=== PATIENT | female | born 1940 | race Caucasian/White ===

== ENCOUNTER 2016-07-14 11:05 | Inpatient (IN) | payer MEDICARE, OTHER ==
[~2016-07-14] VITALS: Ht 162.6 cm; Wt 82.1 kg
--- NOTE | ~2016-07-14 | HEMODYNAMI ---
PATIENT:JORDANA ESPINOZA MEDICAL RECORD: [id number] : 36 [facility] ADMISSION DATE: 07/14/16 Generatedon:07/20/201615:40 Patient name: JORDANA ESPINOZA Patient #: [id number] SSN: D OB: 1940 Date of study: 07/20/2016 Page: Of Hemodynamic Procedure Report Patient Data Patient Demographics Procedure consent was obtained First Name: JORDANA Gender: Female Last Name: OLGA : 1940 Patient #: [id number] Age: 76 year(s) Race: Additional ID: [id number] Contact details Address: [place] [place] [address] State: [place] City: [place] Zip code: [address] Past Medical History Allergies Allergen Reaction Date Comments Reported Penicillins 10/29/2014 Penicillins 07/20/2016 Admission Admission Data Admission Date: 07/14/2016 Admission Time: 15:13 Room #: D.2130 Weight (lbs.): 234 Weight (kg.): 106.14 Procedure Procedure Types Cath Procedure Peripheral Cath Diagnostic Procedure Cath Peripheral Kyphoplasty Kyphoplasty Thoracic Procedure Description Procedure Date Procedure Date: 07/20/2016 Procedure Start Time: 14:54 Procedure Staff Name Function Mg Rose MD Performing Physician Cricket Krishnamurthy RT Scrub Deedee Hare RN Nurse Marisol Fulton RT Administration Intern Marisol Fulton RT Monitor Procedure Data Cath Procedure Fluoroscopy Diagnostic fluoroscopy Total fluoroscopy Time: time: 10.7 min 10.7 min Diagnostic fluoroscopy Total fluoroscopy dose: dose: 1032.08 mGy 1032.08 mGy Procedure Medications Medication Administration Route Dosage Zofran I.V. 4 mg Fentanyl I.V. 50 mcg Benadryl I.V. 50 mg Fentanyl I.V. 50 mcg Vancomycin I.V.P.B 500 mg Versed I.V. 1 mg Versed I.V. 1 mg Fentanyl I.V. 50 mcg Versed I.V. 1 mg Hemodynamics Rest Heart Rate: 86 (bpm) Snapshots Pre Cath Intra NCS Post Cath Vital Signs Time Heart Resp SPO2 NIBP (mmHg) Rhythm Pain Status Sedation Rate (ipm) (%) Level (bpm) 14:20:36 18 Out of range NSR 9 (11) , 10(A) Excruciating unbearable 14:24:15 16 202/103(152) NSR 9 (11) , 10(A) Excruciating unbearable 14:32:26 16 199/109(161) NSR 5 (11) , Very 10(A) distressing 14:35:18 14 96 202/111(160) NSR 3 (11) , 10(A) Tolerable 14:40:16 16 99 197/91(119) NSR 2 (11) , 10(A) Uncomfortable 14:44:58 82 14 96 155/88(106) NSR 0 (11) , No 10(A) pain 14:49:33 90 14 98 153/82(127) NSR 0 (11) , No 10(A) pain 14:54:09 81 14 96 165/78(111) NSR 0 (11) , No 10(A) pain 14:58:35 76 13 98 122/69(91) NSR 0 (11) , No 9(A) pain 15:02:58 74 13 98 126/68(96) NSR 0 (11) , No 9(A) pain 15:07:20 75 14 99 144/74(98) NSR 0 (11) , No 9(A) pain 15:11:40 77 12 100 137/83(108) NSR 0 (11) , No 9(A) pain 15:16:08 78 13 99 140/72(98) NSR 0 (11) , No 9(A) pain 15:20:28 79 11 99 126/64(96) NSR 0 (11) , No 9(A) pain 15:25:27 89 14 98 Measuring NSR 0 (11) , No 9(A) pain 15:25:52 85 13 98 161/84(111) NSR 0 (11) , No 9(A) pain 15:30:18 74 13 99 153/82(107) NSR 0 (11) , No 9(A) pain 15:34:53 73 11 98 149/74(106) NSR 0 (11) , No 9(A) pain 15:39:21 73 11 99 161/82(113) NSR 0 (11) , No 9(A) pain Medications Time Medication Route Dose Verified Delivered Reason Notes Effect iveness by by 14:23:29 Zofran I.V. 4 mg Deedee Deedee for nausea King DANE Hare RN 14:25:07 Fentanyl I.V. 50 Deedee Deedee for back mcg King DANE Hare RN pain 14:33:01 Benadryl I.V. 50 mg Deedee Deedee for sedation King DANE Hare RN 14:33:56 Fentanyl I.V. 50 Deedee Deedee for back mcg King DANE Hare RN pain 14:36:11 Vancomycin I.V.P.B 500mg Deedee Deedee prophylactic King DANE Hare RN 14:55:22 Versed I.V. 1 mg Deedee Deedee for sedation King DANE Hare RN 15:01:50 Versed I.V. 1 mg Deedee Deedee for sedation King DANE Hare RN 15:12:18 Fentanyl I.V. 50 Deedee Deedee for back mcg King DANE Hare RN pain 15:15:32 Versed I.V. 1 mg Deedee Deedee for sedation King DANE Hare RN Procedure Log Time Note 13:34:36 Patient Weight : 234 lbs 14:19:24 Time tracking: Regular hours 14:19:33 Plan of Care:Hemodynamics will remain stable., Cardiac rhythm will remain stable., Comfort level will be maintained., Respiratory function will remain adequate., Patient/ family verbilizes understanding of procedure., Procedure tolerated without complication., Recovers from procedure without complications.. 14:20:21 Patient received from Med II to Alert and oriented. Tansferred to table in Prone position. 14:20:24 Correct patient and procedure confirmed by team. 14:20:26 Signed procedure consent form obtained from patient. 14:20:29 - 14:20:37 H&P Date Dictated: 07/20/2016 Within 30 days and on chart.. 14:20:39 Pre-procedure instructions explained to patient. 14:20:40 Pre-op teaching completed and patient verbalized understanding. 14:20:43 Family in waiting room. 14:20:48 Patient NPO since Midnight. 14:21:16 Patient allergic to Penicillins 14:21:41 If diabetic: On Metformin? No 14:21:43 - 14:21:46 ----Pre-sedation anethsthesia assessment.---- 14:21:50 Previous problem with sedation/anesthesia? No ? 14:21:56 Sleep apnea? No 14:22:05 Snore? Yes 14:22:09 Deviated septum? No 14:22:12 Opens mouth fully? Yes 14:22:14 Sticks out tongue? Yes 14:22:17 Airway obstruction? No , but has heart disease? 14:22:56 IV patent on arrival in left wrist with 0.9% NaCl at [facility]. 14:23:09 Thoracic area was prepped with dura-prep and draped in sterile fashion 14:23:12 Alarms reviewed by R. N. 14:23:13 Sharps counted by scrub and verified by R.N. 14:23:14 - 14:23:29 Zofran 4 mg I.V. was given by Deedee Hare RN; for nausea; 14:23:29 Use device set IR Diagnostic 14:23:30 Sterile Angiographic Pack opened to sterile field. 14:23:32 Bag Decanter opened to sterile field. 14:25:07 Fentanyl 50 mcg I.V. was given by Deedee Hare RN; for back pain; 14:25:29 [place] BONE BX 11GA kit opened to sterile field. 14:25:30 Chandana 11G Curved Needle opened to sterile field. 14:25:31 CHANDANA 10/2 AUGMENT[place] [place] KIT opened to sterile field. 14:25:32 CHANDANA AUTOPLEX MIXER W/VHV opened to sterile field. 14:30:42 Vital chart was started 14:33:01 Benadryl 50 mg I.V. was given by Deedee Hare RN; for sedation; 14:33:56 Fentanyl 50 mcg I.V. was given by Deedee Hare RN; for back pain; 14:36:11 Vancomycin 500mg I.V.P.B was given by Deedee Hare RN; prophylactic; 14:43:52 ECG and BP/O2 sat monitors applied to patient. 14:43:55 Full Disclosure recording started 14:53:09 Baseline sample Acquired. 14:53:13 - 14:53:19 Physician arrived 14:53:20 --------ALL STOP TIME OUT------ 14:53:21 Final Timeout: patient, procedure, and site verified with staff and physician. All members of the team are in agreement. 14:54:18 Physical assessment completed. ASA score P 3 - A patient with severe systemic disease as per Mg Rose MD. 14:54:27 Sedation plan: IV Moderate Sedation Versed, Fentanyl 14:54:42 Procedure started. 14:55:22 Versed 1 mg I.V. was given by Deedee Hare RN; for sedation; 14:57:28 Jamshidi needle introduced. 15:01:50 Versed 1 mg I.V. was given by Deedee Hare RN; for sedation; 15:09:20 Bone bx needle placed. 15:11:35 Kyphoplasty balloon introduced. 15:12:18 Fentanyl 50 mcg I.V. was given by Deedee Hare RN; for back pain; 15:15:02 Cement introduced to vertebral body. 15:15:32 Versed 1 mg I.V. was given by Deedee Hare RN; for sedation; 15:25:02 Jamshidi needle removed. 15:30:03 Procedure ended.(Physican Out) 15:30:43 Fluoroscopy time 10.70 minutes. 15:30:51 Fluoroscopy dose: 1032.08 mGy 15:30:51 Flurop Dose total: 1032.08 15:31:15 Sharps counted by scrub and verified by R.N. 15:31:18 Procedure and supply charges have been captured, reviewed, submitted an d are correct. 15:40:14 Vital chart was stopped Device Usage Item Name Manufacture Quantity Catalog Hospital Part Current Minim al Lot# / Number Charge Number Stock Stock Serial# Code Sterile Cardinal 1 [id number] 5 Angiographic Health Pack Bag Decanter Microtek 1 [id number] 5 [employer] Chandana BONE [place] 1 [id number] [id number] [id number] 5 BX 11GA kit [place] 11G Chandana 1 [id number] [id number] [id number] 5 Curved Needle CHANDANA 10/2 [place] 1 4590-466-655 241874 195029 [id number] 5 AUGMENT[employer] [place] KIT CHANDANA Chandana 1 [id number] 039557 22785 [id number] 5 AUTOPLEX MIXER W/VHV Signature Audit Virgil Stage Time Signature Unsigned Intra-Procedure 07/20/2016 Marisol Fulton 3:40:11 PM RT(R) Signatures Monitor : Marisol Fulton RT Signature : Date : Time : [facility] [address] [place] [address]
[~2016-07-14 11:05] MED LIST: PLAVIX75 MG PO
[2016-07-14 12:42] LABS: BASOPHILS 0.5 % (0.0-2.0); EOSINOPHILS 3.5 % (0-7); HEMATOCRIT 41.7 % (36.0-48.0); HEMOGLOBIN 13.3 g/dL (12-16); IMMATURE GRANULOCYTES 0.2 % (0-5); INR 1.05 (0.85-1.17); LYMPHOCYTES 25.7 % (15-50); MCH 33.3 pg (26.0-34.0); MCHC 31.9 g/dL (31.0-37.0); MCV 104.5 fL (80.0-100.0); MEAN PLATELET VOLUME 9.4 fL (7.4-10.4); NEUTROPHILS 64.1 % (40-80); PLATELET COUNT 263 10x3/uL (130-400); PROTIME 13.6 SECONDS (11.6-15.0); RBC 3.99 10x6/uL (4.00-5.40); RDW 13.2 % (11.5-14.5)
[2016-07-14 12:47] LABS: ALBUMIN 3.7 g/dL (3.4-5.0); ANION GAP 12.6 mmol/L (8-16); BILIRUBIN - TOTAL 0.4 mg/dL (0.2-1.3); CALCIUM 9.6 mg/dL (8.5-10.1); CARBON DIOXIDE 29.2 mmol/L (21.0-32.0); CREATININE - SERUM 1.1 mg/dL (0.6-1.3); POTASSIUM - SERUM 3.8 mmol/L (3.5-5.1); PROTEIN - SERUM 7.7 g/dL (6.4-8.2)
[2016-07-14 12:51] LABS: TROPONIN-I 0.033 ng/mL (0.000-0.060)
[2016-07-14] MEDS ORDERED: ISOSORBIDE DINI20 MG PO (17:06)
[2016-07-14] MEDS ORDERED: BAYER CHEWABLE81 MG PO (17:07)
[2016-07-14] MEDS ORDERED: BACLOFEN10 MG PO (17:07)
[2016-07-14] MEDS ORDERED: NITROSTAT0.4 MG SL (17:07)
[2016-07-14] MEDS ORDERED: SYNTHROID112 MCG PO (17:08)
[2016-07-14] MEDS ORDERED: OMEPRAZOLE20 M1 PO (17:08)
[2016-07-14] MEDS ORDERED: FUROSEMIDE40 MG PO (17:09)
[2016-07-14 17:10] VITALS: BP 134/80; BMI 37.5
--- NOTE | 2016-07-14 17:20 | NUR ---
PT TO ROOM FROM ER ADMITTED. SCDS ON. PT ALERT AND ORIENTED. FAMILY AT BEDSIDE.
[2016-07-14 22:07] VITALS: BP 192/104
--- NOTE | 2016-07-14 23:18 | NUR ---
IN BED RESTING, WITH EYES CLOSED, NO S/S DISTRESS NOTED.
[2016-07-15 01:00] VITALS: BP 192/116
--- NOTE | 2016-07-15 01:20 | NUR ---
DILAUDID 0.5 MG AND ZOFRAN 4 MG GIVEN FOR C/O PAIN AND NAUSEA.
[2016-07-15 04:31] VITALS: BP 135/81
--- NOTE | 2016-07-15 05:33 | NUR ---
UP WITH ASSIST TO BR, GAIT UNSTEADY. BATH GIVEN AND LINENS CHANGED.
[2016-07-15 06:33] LABS: BASOPHILS 0.4 % (0.0-2.0); EOSINOPHILS 0.9 % (0-7); HEMATOCRIT 39.8 % (36.0-48.0); HEMOGLOBIN 12.4 g/dL (12-16); IMMATURE GRANULOCYTES 0.3 % (0-5); LYMPHOCYTES 17.7 % (15-50); MCH 32.9 pg (26.0-34.0); MCHC 31.2 g/dL (31.0-37.0); MCV 105.6 fL (80.0-100.0); MEAN PLATELET VOLUME 9.3 fL (7.4-10.4); NEUTROPHILS 73.7 % (40-80); PLATELET COUNT 241 10x3/uL (130-400); RBC 3.77 10x6/uL (4.00-5.40); RDW 13.7 % (11.5-14.5); WBC 6.7 10x3/uL (4.8-10.8)
--- NOTE | 2016-07-15 07:00 | NUR ---
RECEIVED REPORT. ASSUMED CARE OF PATEINT. PATIENT WITH EYES OPEN, SITTING UP IN BED TALKING ON CELL PHONE. CALL LIGHT WITHIN REACH. DENIES NEEDS. NO DISTRESS.
[2016-07-15 07:06] LABS: ANION GAP 14.3 mmol/L (8-16); CARBON DIOXIDE 29.2 mmol/L (21.0-32.0); CREATININE - SERUM 1.1 mg/dL (0.6-1.3)
[2016-07-15 07:08] LABS: POTASSIUM - SERUM 4.5 mmol/L (3.5-5.1)
[2016-07-15 08:00] VITALS: BP 106/75
--- NOTE | 2016-07-15 11:38 | NUR ---
MEDICATED FOR PAIN AT THIS TIME. NO DISTRESS.
[2016-07-15 12:00] VITALS: BP 116/65
[2016-07-15 12:54] VITALS: Ht 162.6 cm; Wt 82.1 kg
--- NOTE | 2016-07-15 14:09 | NUR ---
RESTING WELL. CALL LIGHT WITHIN REACH. NO DISTRESS. DENIES NEEDS AT THIS TIME.
--- NOTE | 2016-07-15 14:35 | NUR ---
MEDICATED FOR PAIN AT THIS TIME. NO DISTRESS.
--- NOTE | 2016-07-15 15:50 | NUR ---
EKG #1 COMPLETE AT THIS TIME. RESULTS SHOWED TO . NO NEW ORDERS AT THIS TIME.
--- NOTE | 2016-07-15 16:09 | NUR ---
ULTRASOUND AT BEDSIDE FOR DOPPLER ULTRASOUND.
[2016-07-15 16:10] LABS: CKMB 1.1 U/L (0.0-3.6); CREATINE KINASE 36 UL (21-215); TROPONIN-I 0.035 ng/mL (0.000-0.060)
[2016-07-15 16:27] VITALS: BP 118/68
--- NOTE | 2016-07-15 18:26 | NUR ---
RESTING IN BED WITH EYES OPEN, FAMILY AT BEDSIDE. CALL LIGHT WITHIN REACH. DENIES NEEDS. NO DISTRESS.
--- NOTE | 2016-07-15 20:00 | NUR ---
MEDICATED WITH TYLENOL FOR BACK/CHEST PAIN WITH COUGHING AND EXPECTORATING. ALERT/ORIENTED.
--- NOTE | 2016-07-15 21:11 | NUR ---
HS MEDS GIVEN, REPOSITIONED IN BED FOR COMFORT.
[2016-07-15 21:20] VITALS: BP 140/77
[2016-07-15 21:56] LABS: CKMB 1.7 U/L (0.0-3.6); CREATINE KINASE 54 UL (21-215); TROPONIN-I 0.042 ng/mL (0.000-0.060)
[2016-07-16 00:30] VITALS: BP 138/80
[2016-07-16 03:42] LABS: BASOPHILS 0.1 % (0.0-2.0); EOSINOPHILS 0.1 % (0-7); HEMATOCRIT 38.4 % (36.0-48.0); HEMOGLOBIN 12.2 g/dL (12-16); IMMATURE GRANULOCYTES 0.4 % (0-5); LYMPHOCYTES 11.9 % (15-50); MCH 33.2 pg (26.0-34.0); MCHC 31.8 g/dL (31.0-37.0); MCV 104.3 fL (80.0-100.0); MEAN PLATELET VOLUME 9.2 fL (7.4-10.4); NEUTROPHILS 84.5 % (40-80); PLATELET COUNT 246 10x3/uL (130-400); RBC 3.68 10x6/uL (4.00-5.40); RDW 13.6 % (11.5-14.5)
[2016-07-16 03:43] LABS: WBC 8.9 10x3/uL (4.8-10.8)
[2016-07-16 04:04] LABS: CALC OSMOLALITY 274 mosm/kg (275-300); CALCIUM 9.8 mg/dL (8.5-10.1); CARBON DIOXIDE 26.7 mmol/L (21.0-32.0); CHLORIDE - SERUM 98 mmol/L (98-107); CKMB 1.6 U/L (0.0-3.6); CREATINE KINASE 50 UL (21-215); CREATININE - SERUM 1.3 mg/dL (0.6-1.3); GLUCOSE 137 mg/dL (74-106); POTASSIUM - SERUM 4.8 mmol/L (3.5-5.1); SODIUM 134 mmol/L (136-145); TROPONIN-I 0.038 ng/mL (0.000-0.060); eGFR NON AFRICAN AMERICAN 42 mL/min (90-120)
[2016-07-16 04:05] LABS: UREA NITROGEN 27 mg/dL (7-18)
[2016-07-16 04:30] VITALS: BP 134/87
--- NOTE | 2016-07-16 04:30 | NUR ---
NORCO 1 TAB GIVEN FOR C/O PAIN TO BACK. RATES PAIN AT AN 8 ON PAIN SCALE. REPOSITIONED IN BED FOR COMFORT. CALL TO RT TO REQUEST UPDRAFT.
--- NOTE | 2016-07-16 07:00 | NUR ---
RECEIVED REPORT. ASSUMED CARE OF PATIENT. CALL LIGHT WITHIN REACH. PATIENT RESTING WITH EYES CLOSED, CELL PHONE IN HAND WITH GAME OPEN ON SCREEN. PATIENT EASILY AROUSED, RESP EVEN AND UNLABORED. DENIES NEEDS AT THIS TIME. STATES SHE IS TIRED, NO DISTRESS.
[2016-07-16 09:10] VITALS: BP 136/70
--- NOTE | 2016-07-16 09:18 | NUR ---
MEDICATED FOR PAIN AT THIS TIME. NO DISTRESS.
--- NOTE | 2016-07-16 09:40 | NUR ---
PATIENT OOB AMBULATING WITH PHYSICAL THERAPY. NO DISTRESS.
[2016-07-16 12:00] VITALS: BP 148/61
--- NOTE | 2016-07-16 12:34 | NUR ---
MEDICATED FOR PAIN AT THIS TIME. NO DISTRESS.
--- NOTE | 2016-07-16 14:00 | NUR ---
PATIENT AMBULATED 142 FT WITH PHYSICAL THERAPY AT THIS TIME. TOLERATED THERAPY WELL. SITTING TO CHAIR AT BEDSIDE. NO DISTRESS.
--- NOTE | 2016-07-16 14:05 | NUR ---
MEDICATED FOR PAIN AT THIS TIME. CALULATED MG OF ACETOMENOPHEN FOR LAST 24 HOURS AND PATIENT HAS NOT EXCEEDED 3000MG COMPUTER EMAR STATES SHE HAS. SITTING IN CHAIR AT BEDSIDE. NO DISTRESS.
[2016-07-16 16:00] VITALS: BP 134/86
--- NOTE | 2016-07-16 16:53 | NUR ---
22 GAUGE IV SITE PLACED TO LEFT WRIST AT THIS TIME. PATIENT JERKED IV SITE TO RIGHT AC AND CAUSED INFILTRATION. 22 GAUGE IV PLACED X 1 STICK. GOOD BLOOD RETURN, EASY FLUSH. TAPED, DATED AND SECURED. IV ANTIBIOTICS INFUSING ORDERED AT THIS TIME. 20 GAUGE IV REMOVED FROM RIGHT AC, CATHETER TIP INTACT. NO BLEEDING FROM SITE. 2X2 GAUZE APPLIED AND SECURED WITH TAPE. TOLERATED REMOVAL AND INSERTION OF IV'S AT THIS TIME. NO DISTRESS. FAMILY AT BEDSIDE.
--- NOTE | 2016-07-16 18:38 | NUR ---
MEDICATED FOR PAIN AT THIS TIME. NO DISTESS.
--- NOTE | 2016-07-16 19:03 | NUR ---
SITTING UP IN BED, AAOX3, SKIN WARM AND DRY, RESP UNLABORED, IV PATENT TO LEFT WRIST, O2@2LNC, NO DISTRESS NOTED
--- NOTE | 2016-07-16 19:11 | NUR ---
REPORT GIVEN TO ONCOMING NURSE. NO DISTRESS. CALL LIGHT WITHIN REACH.
[2016-07-16 20:19] VITALS: BP 143/65
[2016-07-17 00:06] VITALS: BP 151/71
[2016-07-17 05:55] VITALS: BP 210/92
[2016-07-17 06:45] LABS: BASOPHILS 0.1 % (0.0-2.0); EOSINOPHILS 0 % (0-7); HEMATOCRIT 39.6 % (36.0-48.0); HEMOGLOBIN 12.8 g/dL (12-16); IMMATURE GRANULOCYTES 0.7 % (0-5); LYMPHOCYTES 12.7 % (15-50); MCH 33.5 pg (26.0-34.0); MCHC 32.3 g/dL (31.0-37.0); MCV 103.7 fL (80.0-100.0); MEAN PLATELET VOLUME 10.7 fL (7.4-10.4); MONOCYTES 5.5 % (2-11); PLATELET COUNT 274 10x3/uL (130-400); RBC 3.82 10x6/uL (4.00-5.40); RDW 13.8 % (11.5-14.5); WBC 10.6 10x3/uL (4.8-10.8)
[2016-07-17 07:08] LABS: ANION GAP 9.7 mmol/L (8-16); CALCIUM 10.2 mg/dL (8.5-10.1); CARBON DIOXIDE 31.1 mmol/L (21.0-32.0); CREATININE - SERUM 1.2 mg/dL (0.6-1.3); POTASSIUM - SERUM 4.8 mmol/L (3.5-5.1)
[2016-07-17 08:25] VITALS: BP 120/87
[2016-07-17 12:53] VITALS: BP 141/88
--- NOTE | 2016-07-17 14:07 | NUR ---
PT REQUESTED PRN PAIN PILL AND WAS PROVIDED WITH IT. PT SITTING UP IN BEDSIDE CHAIR RESTING QUIETLY WATCHING TV. AT BEDSIDE. NO FURTHER NEEDS AT THIS TIME. WILL CPOC.
--- NOTE | 2016-07-17 15:40 | NUR ---
INITIATED PTS IVPB LEVAQUIN TO BE INFUSED OVER 90MINS. INFUSING VIA L.WRIST PIV. PT ALSO REC'D SOLU-MEDROL PUSHED SLOWLY OVER 2 MINS. PT RESTING QUIETLY IN BEDSIDE CHAIR WITH FAMILY AT BEDSIDE. NO FURTHER NEEDS AT THIS TIME. CL IN REACH. WILL CPOC.
[2016-07-17 16:49] VITALS: BP 143/71
--- NOTE | 2016-07-17 19:30 | NUR ---
ASSESSMENT COMPLETE, DENIES NEEDS AT THIS TIME. SITTING UP IN BEDSIDE CHAIR,WITH O2 @ 2LVIA NC WITH RESP UNLAB, TELEMETRY SHOWING HR SR. C/L IN REACH. CONTINUE TO MONITOR.
[2016-07-17 21:47] VITALS: BP 152/92
--- NOTE | 2016-07-17 22:30 | NUR ---
BACK TO BED WITH ASSIST, JOANNA WELL. BILAT SCDS PLACED ON LOWER LEGS W/O DIFF. HOB UP SR UP X2, C/L IN REACH.CONTINUE TO MONITOR.
[2016-07-18 01:44] VITALS: BP 181/65
--- NOTE | 2016-07-18 03:13 | NUR ---
C/O LOWER LEG PAIN, SOCKS AND SCDS OFF FOR BREAK. BILAT FEET AND LOWER LEGS PLACED UP ON PILLOW FOR C & C. JOANNA WELL. C/L IN REACH. NORCO 1 PO FOR C/O PAIN GIVEN AT THIS TIME.
[2016-07-18 06:08] LABS: BASOPHILS 0.1 % (0.0-2.0); EOSINOPHILS 0 % (0-7); HEMOGLOBIN 12.7 g/dL (12-16); IMMATURE GRANULOCYTES 1.1 % (0-5); LYMPHOCYTES 10.8 % (15-50); MCH 32.7 pg (26.0-34.0); MCHC 31.8 g/dL (31.0-37.0); MCV 103.1 fL (80.0-100.0); MEAN PLATELET VOLUME 9.7 fL (7.4-10.4); MONOCYTES 6.3 % (2-11); NEUTROPHILS 81.7 % (40-80); PLATELET COUNT 299 10x3/uL (130-400); RBC 3.88 10x6/uL (4.00-5.40); RDW 13.8 % (11.5-14.5); WBC 11.4 10x3/uL (4.8-10.8)
[2016-07-18 06:10] VITALS: BP 198/93
[2016-07-18 06:19] LABS: ANION GAP 14.6 mmol/L (8-16); CALCIUM 9.8 mg/dL (8.5-10.1); CARBON DIOXIDE 27.5 mmol/L (21.0-32.0); CREATININE - SERUM 1.3 mg/dL (0.6-1.3); POTASSIUM - SERUM 5.1 mmol/L (3.5-5.1)
--- NOTE | 2016-07-18 07:00 | NUR ---
RECEIVED REPORT. ASSUMED CARE OF PATIENT. CALL LIGHT WITHIN REACH. PATIENT SITTING UP IN CHAIR AT BEDSIDE. DENIES NEEDS AT THIS TIME. NO DISTRESS. STATED SHE HAD A GOOD NIGHT LAST NIGHT.
[2016-07-18 08:08] VITALS: BP 126/78
--- NOTE | 2016-07-18 09:05 | NUR ---
PATIENT BACK TO BED, CALL LIGHT WITHIN REACH. NO DISTRESS. MEDICATED FOR PAIN. FRESH ICE WATER PROVIDED.
--- NOTE | 2016-07-18 09:16 | NUR ---
Patient Name: JORDANA ESPINOZA Admission Status: ER Accout number: [id number] Admission Date: 07-14-2016 : 1940 Admission Diagnosis: Attending: YOLANDA Current LOS: 4 Anticipated DC Date: Planned Disposition: Home with Home Health Primary Insurance: MEDICARE A & B PLANNED EXTERNAL PROVIDER: [facility] LATE ENTRY FROM 07-17-16, 1440 HOURS Discharge Planning Comments: * Is the patient Alert and Oriented? Yes 0 * How many steps to enter\exit or inside your home? RAMP 0 * PCP DR. HATHAWAY 0 * Pharmacy [facility] [place] 0 * Preadmission Environment Home with Family 0 * ADLs Independent 0 * Equipment Cane Walker 0 * Other Equipment WALKER IS BORROWED PT HAS NO MEDICAL EQUIPMENT PROVIDER PREFERENCE 0 * List name and contact numbers for known caregivers / representatives who currently or will assist patient after discharge: TRAN ESPINOZA, SPOUSE, 0 * Community resources currently utilized None 0 * Please name any agencies selected above. NONE 0 * Additional services required to return to the preadmission environment? Yes 0 * Can the patient safely return to the preadmission environment? Yes 0 * Has this patient been hospitalized within the prior 30 days at any hospital? No 0 CM MET WITH PT IN ROOM TO DISCUSS DISCHARGE PLANNING AND NEEDS. PT REPORTS LIVING AT HOME INDEPENDENTLY WITH HER SPOUSE. PT HAS A CANE AND A BORROWED WALKER WITH NO MEDICAL EQUIPMENT PROVIDER PREFERENCE. PT HAS NO OUTSIDE SERVICES ASSISTING IN THE HOME. CM DISCUSSED AVAILABILITY OF HOME HEALTH, REHAB SERVICES AND MEDICAL EQUIPMENT. PT DECLINES INPATIENT AND PRISON REHAB REPORTING SHE STRONG ENOUGH TO GO HOME. PT HAS DISCUSSED HOME HEALTH WITH HER FAMILY AND WANTS [facility] AT DISCHARGE, REPORTS HER SPOUSE WILL PICK HER UP FOR DISCHARGE HOME. IMPORTANT MESSAGE FROM MEDICARE PROVIDED AND EXPLAINED. CHOICE LETTER SIGNED. CM TO ARRANGE HOME HEALTH WITH [facility] IF DOCTOR AGREES WITH NEED AND PROVIDES HOME HEALTH ORDERS FOR DISCHARGE HOME. Patient Scheduling Manager: Cristi Swanson
--- NOTE | 2016-07-18 11:31 | NUR ---
SITTING TO CHAIR AT BEDSIDE. CALL LIGHT WITHIN REACH. COMPLAIN OF BACK PAIN. TOO EARLY FOR PAIN MEDICATION. WILL CONTINUE TO MONITOR AND MEDICATE WHEN AVAILABLE. NO DISTRESS.
[2016-07-18 11:39] VITALS: BP 142/81
--- NOTE | 2016-07-18 11:40 | NUR ---
MEDICATED WITH TYLENOL FOR BACK PAIN. PATIENT SITTING UP TO CHAIR AT BEDSIDE. NO DISTRESS.
--- NOTE | 2016-07-18 13:32 | NUR ---
Nutrition follow-up: diet: low sodium PO intake 100% of meals Labs reviewed Wt: 230# PO intake good at this time. RDN following.
--- NOTE | 2016-07-18 13:50 | NUR ---
MEDICATED FOR PAIN AND NAUSEA AT THIS TIME. NO DISTRESS.
[2016-07-18 15:42] VITALS: BP 152/80
--- NOTE | 2016-07-18 19:28 | NUR ---
REPORT GIVEN TO TANK TRUCK ENGINE MECHANIC NURSE. PATIENT REMAINS UP IN CHAIR AT BEDSIDE. CALL LIGHT WITHIN REACH. NO DISTRESS.
--- NOTE | 2016-07-18 20:04 | NUR ---
PT ROUNDING COMPLETED NO DISTRESS OBSERVED RESPERATIONS EVEN AND UNLABORED ON 2LNC PT TALKING ON PHONE LAYING IN BED WILL MONITOR
[2016-07-18 20:11] VITALS: BP 113/75
--- NOTE | 2016-07-18 20:45 | NUR ---
SITTING UP IN BED, AAXO3, SKIN WARM AND DRY, RESP UNLABORED, IV PATENT TO LEFT WRIST, NO DISTRESS NOTED
[2016-07-19 02:18] VITALS: BP 164/73
[2016-07-19 06:42] VITALS: BP 161/71
[2016-07-19 07:25] LABS: BASOPHILS 0.1 % (0.0-2.0); EOSINOPHILS 0.1 % (0-7); HEMOGLOBIN 12.3 g/dL (12-16); IMMATURE GRANULOCYTES 1.6 % (0-5); LYMPHOCYTES 12.3 % (15-50); MCH 33.1 pg (26.0-34.0); MCHC 32.4 g/dL (31.0-37.0); MCV 102.2 fL (80.0-100.0); MEAN PLATELET VOLUME 9.3 fL (7.4-10.4); MONOCYTES 6.2 % (2-11); NEUTROPHILS 79.7 % (40-80); PLATELET COUNT 280 10x3/uL (130-400); RBC 3.72 10x6/uL (4.00-5.40); RDW 13.7 % (11.5-14.5)
[2016-07-19 07:29] LABS: ANION GAP 11.7 mmol/L (8-16); CALCIUM 9.5 mg/dL (8.5-10.1); CARBON DIOXIDE 29.1 mmol/L (21.0-32.0); CREATININE - SERUM 1.2 mg/dL (0.6-1.3); POTASSIUM - SERUM 4.8 mmol/L (3.5-5.1)
[2016-07-19 08:56] VITALS: BP 119/64
--- NOTE | 2016-07-19 09:44 | NUR ---
SITTING UP IN BEDSIDE CHAIR. ALERT ORIENTED CONVERSANT. DENIES NEEDS. NO ACUTE DISTRESS NOTED
[2016-07-19 12:28] VITALS: BP 142/79
[2016-07-19 15:44] VITALS: BP 117/73
--- NOTE | 2016-07-19 16:36 | NUR ---
DR MOODY AT BS. CALL LIGHT IN REACH. WILL CONT. PLAN OF CARE.
--- NOTE | 2016-07-19 19:44 | NUR ---
PT RETURNED FROM RADIOLOGY AND NOW IN HER BED.
--- NOTE | 2016-07-19 20:01 | NUR ---
RESTING IN BEDSIDE CHAIR. ALERT/ORIENTED. LEFT WRIST PIV SALINE LOCKED. O2 @ 2L/NC OFF, STATES SHE ONLY WEARS AT BEDTIME. SR PER TELEMETRY. SEE ASSESSMENT. CPOC.
[2016-07-19 22:30] VITALS: BP 125/84
--- NOTE | 2016-07-19 22:35 | NUR ---
HS MEDS GIVEN, LIDODERM PATCH REMOVED FROM BACK. PT ASSISTED TO DO PM CARE AND THEN INTO BED. CALL LIGHT IN REACH. CPOC.
--- NOTE | 2016-07-19 23:02 | NUR ---
PT HAS BEEN ON HER CALL LIGHT NUMEROUS TIMES TO BE REPOSITIONED FOR HER BACK PAIN. WARM PACK HAS BEEN APPLIED TO BACK. PROVIDING A BACLOFEN BY MOUTH NOW TO SEE IF IT WILL HELP WITH HER LEVEL OF COMFORT. CALL LIGHT IN REACH.
[2016-07-20] VITALS (11 sets, daily range): BP systolic 112–155; BP diastolic 54–96
--- NOTE | 2016-07-20 02:42 | NUR ---
PT AWAKE AND IN PAIN IN HER BACK. REVIEWED MEDS, PT GIVEN NORCO FOR PAIN, BACLOFEN TO RELAX MUSCLES AND HER AM MEDS THAT MIGHT NECESSITATE HER BEING AWAKENED IF SHE IS ABLE TO SLEEP. WILL MONITOR.
[2016-07-20 06:03] LABS: BASOPHILS 0.1 % (0.0-2.0); EOSINOPHILS 0.3 % (0-7); HEMOGLOBIN 12.5 g/dL (12-16); IMMATURE GRANULOCYTES 1.7 % (0-5); LYMPHOCYTES 13.2 % (15-50); MCHC 32.1 g/dL (31.0-37.0); MCV 102.9 fL (80.0-100.0); MEAN PLATELET VOLUME 9.1 fL (7.4-10.4); MONOCYTES 8.4 % (2-11); NEUTROPHILS 76.3 % (40-80); PLATELET COUNT 240 10x3/uL (130-400); RBC 3.79 10x6/uL (4.00-5.40); WBC 10.1 10x3/uL (4.8-10.8)
[2016-07-20 06:31] LABS: ANION GAP 10.5 mmol/L (8-16); CALCIUM 9.8 mg/dL (8.5-10.1); CARBON DIOXIDE 31.9 mmol/L (21.0-32.0); CREATININE - SERUM 1.2 mg/dL (0.6-1.3); POTASSIUM - SERUM 4.4 mmol/L (3.5-5.1)
--- NOTE | 2016-07-20 07:40 | NUR ---
PT SITTING UP TO CHAIR DENIES NEEDS AT THIS TIME WILL CONT TO MONITOR.
[2016-07-20 08:04] LABS: MAGNESIUM - SERUM 2.3 mg/dL (1.8-2.4); PHOSPHOROUS 4.4 mg/dL (2.5-4.9)
[2016-07-20 09:58] LABS: APPEARANCE CLEAR (CLEAR); BILIRUBIN NEGATIVE (NEGATIVE); COLOR YELLOW (YELLOW); GLUCOSE NEGATIVE (NEGATIVE); KETONE NEGATIVE (NEGATIVE); LEUKOCYTE ESTERASE NEGATIVE (NEGATIVE); NITRITE NEGATIVE (NEGATIVE); PROTEIN NEGATIVE (NEGATIVE); SPECIFIC GRAVITY 1.015 (1.005-1.020); UROBILINOGEN NORMAL (NORMAL)
[2016-07-20 10:28] LABS: INR 1.03 (0.85-1.17); PROTIME 13.4 SECONDS (11.6-15.0)
--- NOTE | 2016-07-20 11:45 | NUR ---
STARTED PLATELETS. PT VS WNL SITTING IN CHAIR. DAUGHTER AT BEDSIDE. PT WITH NO S/S TRANSFUSION REACTION. WILL CONT TO MONITOR.
--- NOTE | 2016-07-20 12:00 | NUR ---
pt still with no s/s reaction vs still wnl. will cont to m onitor.
--- NOTE | 2016-07-20 12:30 | NUR ---
PLATELETS FINISHED TRANSFUSING. PT STILL WITH NO S/S TRANSFUSION REACTIONS. VS WNL. PT SLEEPING IN CHAIR FAMILY AT BEDSIDE. INFUSING LEVAWUIN NOW WITH NO PROBLEMS. WILL CONT TO MONITOR.
--- NOTE | 2016-07-20 13:33 | NUR ---
Rehab Prescreening Consult recieved and the chart was reviewed. She is scheduled for a Kyphoplasty today. She has discussed rehab with the [facility] and voiced interest. She meets criteria and will be accepted after PT works with her post kyphoplasty tomorrow. The DARLENE Swanson has been made aware. Elizabet Joiner RN Clinical Liaison, Rehab
--- NOTE | 2016-07-20 13:51 | NUR ---
[facility] WENT AND SAW PT. SAID TO STAY OFF BOTTOM.
--- NOTE | 2016-07-20 14:15 | NUR ---
PT TO IR FOR KYPHOPLASTY
--- NOTE | 2016-07-20 14:38 | NUR ---
WOUND CARE CONSULT: NO OPEN WOUNDS NOTED ON BOTTOM. THERE IS BLANCHABLE REDNESS. INSTRUCTED PT TO CONTINUE TO TURN ON HER SIDE WHILE IN BED. SHE VOICED UNDERSTANDING. WILL MONITOR.
--- NOTE | 2016-07-20 16:11 | NUR ---
RECEIVED PT BACK FROM IR FROM KYPHOPLASTY. PT IS VERY SLEEPY. VS WNL. PT LAYING FLAT. WILL BE ON 2 HOURS BED REST FAMILY AT BEDSIDE WILL CONT TO MONITOR.
--- NOTE | 2016-07-20 17:05 | NUR ---
PT STILL RESTING COMFORTABLY. PT FAMILY AT BEDSIDE.
--- NOTE | 2016-07-20 18:01 | NUR ---
PT STILL RESTING COMFORTABLY. NO S/S DISTRESS DAUGHTER STILL AT BEDSIDE VS STILL WNL WILL CONT TO RAMY.
--- NOTE | 2016-07-20 20:15 | NUR ---
PT RESTING IN BED. STILL DROWSY FROM KYPHOPLASTY PROCEDURE DONE TODAY. WILL ROUSE TO VERBAL STIMULI, THEN IMMEDIATELY DRIFTS BACK TO SLEEP. MAY HOLD MEDS UNTIL SHE IS MORE ALERT. SALINE LOCK TO LEFT WRIST. DRESSING TO LEFT UPPER BACK. SR PER TELEMETRY. CPOC.
[2016-07-21 00:52] VITALS: BP 106/58
[2016-07-21 05:04] VITALS: BP 129/79
[2016-07-21 05:24] LABS: BASOPHILS 0.1 % (0.0-2.0); EOSINOPHILS 0.4 % (0-7); HEMATOCRIT 35.8 % (36.0-48.0); HEMOGLOBIN 11.3 g/dL (12-16); IMMATURE GRANULOCYTES 1.9 % (0-5); LYMPHOCYTES 16.8 % (15-50); MCH 32.7 pg (26.0-34.0); MCHC 31.6 g/dL (31.0-37.0); MCV 103.5 fL (80.0-100.0); MEAN PLATELET VOLUME 9.1 fL (7.4-10.4); NEUTROPHILS 71.8 % (40-80); PLATELET COUNT 286 10x3/uL (130-400); RBC 3.46 10x6/uL (4.00-5.40); RDW 13.7 % (11.5-14.5); WBC 8.9 10x3/uL (4.8-10.8)
[2016-07-21 05:53] LABS: ANION GAP 7.8 mmol/L (8-16); CALCIUM 9.2 mg/dL (8.5-10.1); CARBON DIOXIDE 35.1 mmol/L (21.0-32.0); CREATININE - SERUM 1.2 mg/dL (0.6-1.3); MAGNESIUM - SERUM 2.3 mg/dL (1.8-2.4); PHOSPHOROUS 3.7 mg/dL (2.5-4.9); POTASSIUM - SERUM 3.9 mmol/L (3.5-5.1)
--- NOTE | 2016-07-21 06:46 | NUR ---
PT WAS GIVEN COMPLETE BED BATH PER OPENSTACK CLOUD CONSULTING ARCHITECT, CLEAN LINENS AND ORAL CARE. PT REQUESTED AND WAS GIVEN AM MEDS, PLUS PAIN PILL AND MUSCLE RELAXER. LEFT UPPER BACK HAS SMALL DRESSING C/D/I. CALL LIGHT IN REACH.
--- NOTE | 2016-07-21 07:31 | NUR ---
PT SITTING UP IN BED SLEEPING NO S/S DISTRESS WILL CONT TO MONITOR.
[2016-07-21 08:23] VITALS: BP 124/77
--- NOTE | 2016-07-21 10:17 | NUR ---
Patient Name: JORDANA ESPINOZA Encounter No: [id number] : 1940 Primary Insurance: MEDICARE A & B Anticipated DC Date: 07-21-2016 Planned Disposition: Home with Home Health External Planned Provider: ELIZA SCANLON DCP follow-up note: CM MET WITH PT, PT'S DAUGHTER AND GRANDDAUTHER IN ROOM ON 07-20-16 AT APPROXIMATELY 1310 HOURS TO DISCUSS DISCHARGE NEEDS AND PLANNING. PT STILL REPORTING PLAN TO GO HOME WITH HOME HEALTH, PT'S DAUGHTER REQUESTED [facility] AND [facility]. PT'S DAUGHTER WILL BE FOLLOWING UP WITH [facility] ON AGING TO CHECK INTO ANY [place]ERSONAL CARE THAT MAY BE AVAILABLE TO PT AT HOME. PT WILL HAVE PROCEDURE ON BACK TODAY AND FAMILY WOULD LIKE CM TO FOLLOW UP TOMORROW WITH PT TO SEE IF SHE CHANGES HER MIND REGARDING INPATIENT REHAB. CM EDUCATED PT /FAMILY ON ABILITY OF PT /FAMILY TO CALL INPATIENT REHAB OR [facility] FACILITY OF THEIR CHOICE FOR REHAB SCREENING AND ENTRY AFTER SHE GETS HOME IF PT WAS TO CHANGE HER MIND IN THE NEXT 30 DAYS AFTER DISCHARGE CM MET WITH PT ON 07-21-16 AT APPROXIMATELY 0945 HOURS TO DISCUSS DISCHARGE PLANNING AND NEEDS. PT HAS NOT CHANGED HER MIND AND REPORTS SHE WANTS TO GO HOME. CM ASKED ABOUT HOW PT DID WITH THERAPY THIS MORNING, PT STATED SHE WAS TOO WEAK TO GET UP AND WALK THIS MORNING. CM ENCOURAGED PT TO CONSIDER INPATIENT REHAB OR [facility] RE[facility] PRIOR TO RETURNING HOME. PT DECLINED AND REPORTS SHE IS GOING HOME WITH HOME HEALTH AND THEY CAN DO THE THERAPY WITH HER AT HOME. CM ASKED PT TO CONTACT CM IF SHE CHANGES HER MIND REGARDING REHAB; CM EDUCATED PT ON ABILITY OF PT /FAMILY TO CALL INPATIENT OR [facility] FACILITY FOR REHAB SCREENING FOR POSSIBLE REHAB ENTRY AFTER SHE GETS HOME IF PT WAS TO CHANGE HER MIND IN THE NEXT 30 DAYS AFTER DISCHARGE. PT REPORTED UNDERSTANDING AND THANKED CM FOR THE ASSISTANCE. CM CALLED [facility], , SPOKE TO NIKA AND PATRICK MEDINA, WHO REPORTED THEY HAVE SPOKEN WITH FAMILY AND ARE EXPECTING THE REFERRAL. [facility] DOES PROVIDE SERVICES IN PT'S AREA. CM NOTIFIED JOSE ALEJANDRO OF [facility] INPATIENT REHAB. CM WAITING ARRIVAL OF PT'S DAUGHTER TO VERIFY DISCHARGE PLAN OF HOME WITH HOME HEALTH. PT WANTS TO GO HOME WITH HOME HEALTH THERAPY SERVICES. CM WILL ARRANGE HOME HEALTH WITH PHYSICIAN AGREEMENT AND ORDERS. Cristi Swanson, CASE MANAGEMENT
--- NOTE | 2016-07-21 10:19 | NUR ---
IR SAID IT WAS OK TO RESTART ASA BACK AND TAKE OFF OF HOLD. CALLED PHARM AND SPOKE TO JOVAN THEY ARE TAKING ASA OFF OF HOLD.
--- NOTE | 2016-07-21 11:15 | NUR ---
PT SITTING UP TO CHAIR. NO FAMILY. DR HOFFMAN GAVE OK FOR DC AND SO DOES IR. PT RATES BACK PAIN MUCH BETTER AFTER SURGERY. DENIES NEEDS AT THIS TIME WILL CONT TO MONITOR.
--- NOTE | 2016-07-21 11:42 | NUR ---
Visited at length with the patient this morning about rehab. She insists she is going home with homecare. She still rates her pain as an 8/10 and has not been able to ambulate today. I attempted to call her without success. She was given a business card for [facility] inpatient rehab and instructed to call if she fails at home. She voiced understanding. Elizabet Joiner RN Clinical Liaison, rehab
[2016-07-21 12:03] VITALS: BP 120/59
--- NOTE | 2016-07-21 13:13 | NUR ---
Patient Name: JORDANA ESPINOZA Encounter No: [id number] : 1940 Primary Insurance: MEDICARE A & B Anticipated DC Date: 07-21-2016 Planned Disposition: Home with Home Health External Planned Provider: [facility] FOR NEBULIZER DCP follow-up note: CM RECEIVED ORDER FOR NEBULIZER FOR HOME USE, SPOKE TO PT WHO HAS NO PREFERENCE ON PROVIDER. CM CALLED [facility], , SPOKE TO SANDRA WHO WILL ARRANGE HOSPITAL DELIVERY OF NEBULIZER FOR DISCHARGE HOME TODAY. CM FAXED ORDER AND SUPPORTING DOCUMENTS TO [facility] AT [phone]. CM VERFIED PT'S PHYSICAL ADDRESS FOR DISCHARGE: [address] [place] [address], [place] [address]. PT DENIES FURHTER DISCHARGE NEEDS OTHER THAN HOME HEALTH FOR DISCHARGE TODAY. PT WANTS TO GO HOME WITH HOME HEALTH THERAPY SERVICES. CM WILL ARRANGE HOME HEALTH WITH PHYSICIAN AGREEMENT AND ORDERS. Cristi Swanson, CASE MANAGEMENT
[2016-07-21] MEDS ORDERED: LEVAQUIN750 MG PO (13:28)
[2016-07-21] MEDS ORDERED: MUCINEX DM ER1 EAC1 PO (13:30)
[2016-07-21] MEDS ORDERED: BENZONATATE200 MG PO (13:30)
[2016-07-21] MEDS ORDERED: IPRAT-ALBUT 0.5-3 ML INH (13:31)
[2016-07-21] MEDS ORDERED: PREDNISONE10 MG PO (13:32)
--- NOTE | 2016-07-21 14:13 | NUR ---
PT ADMITTED. TRIED TO SITE PT PIV. I ATTEMPTED TO SITE HER X1 STICK. SANDRA ATTEMPTED TO SITE X4 TIMES. CALLED VASCULAR NURSE AMURILIO TO SITE PT.
--- NOTE | 2016-07-21 15:02 | NUR ---
Patient Name: JORDANA ESPINOZA Encounter No: [id number] : 1940 Primary Insurance: MEDICARE A & B Anticipated DC Date: 07-21-2016 Planned Disposition: Home with Home Health External Planned Provider: [facility] DCP follow-up note: CM RECEIVED DISCHARGE AND HOME HEALTH ORDERS, FAXED REFERRAL AND DISCHARGE INFORMATION TO [facility], . CM RECEIVED CALL FROM [place] OF [facility] WHO ADVISED THEY CAN ADMIT PT ON Sunday07-24-16. PT NOTIFIED, IN AGREEMENT WITH DISCHARGE HOME AND WITH HOME HEALTH FOLLOWING UP ON SUNDAY. PT REPORTS HAVING ASSISTANCE OF FAMILY AT HOME, HER DAUGHTER WILL BE PICKING HER UP IN ABOUT ONE HOUR. [facility]READ[facility] DELIVERED THE NEBULIZER AND SHOWED HER HOW TO USE IT. PT DENIES FURTHER DISCHARGE NEEDS. Cristi Swanson, CASE MANAGEMENT
[2016-07-21 15:58] VITALS: BP 124/83
--- NOTE | 2016-07-21 16:06 | NUR ---
PT O2 SAT ON RA IS 97% PT WALKED 50FT. O2 SAT STAYED AT 97%.
--- NOTE | 2016-07-21 17:08 | NUR ---
WENT OVER DC PAPERWOKR WITH PT PT VERBALIZES UNDERSTANDING. DC PIV WITH CATHETER TIP INTACT. DC TELE. WHEELED PT OUT TO FRONT ENTRANCE. PT GIVEN SCRIPT FOR NORCO BY DR MOODY. PT HAD NEBULIZER. PT WAS INSTRUCTED ON USE OF INHALERS.
--- NOTE | 2016-07-27 13:58 | EC ---
PATIENT:JORDANA ESPINOZA DATE OF SERVICE: 07/14/16 SEX: F MEDICAL RECORD: [id number] DATE OF : [birth year] LOCATION:D.M2 D.213 AGE OF PATIENT: 76 ADMISSION DATE: 07/14/16 REFERRING PHYSICIAN: INTERPRETING PHYSICIAN: DARRICK QURESHI MD ECHOCARDIOGRAM REPORT ECHO CHARGES 4 ECHO COMPLETE CLINICAL DIAGNOSIS: DYSPNEA/CP ECHOCARDIOGRAPHIC MEASUREMENTS (adult normal given) AC root (d.<3.7cm) 3.1 LV Septum d (<1.2 cm> 1.4 Valve Excursion 2.0 LV Septum (systole) 1.8 Left Atria (s.<4.0cm> 4.5 LVPW d(<1.2cm) 1.4 RV (d.<2.3cm) 2.6 LVPW (sytole) 1.7 LV diastole(<5.6CM) 6.5 MV E-F(>70mm/sec) LV systole 3.9 LVOT Diameter 1.7 MV exc.(>10mm) Est.ejection fraction (50-75%) Pericardial Effusion N DOPPLER: LVIT A 128 E 72.0 LA RVSP 35.4 LVOT 217 AOP1/2T Asc. Ao 206 RVOT 116 RA PA 130 AV Gradient Peak 17.0 AV Mean 10.2 AV Area 2.4 MV Gradient Peak 7.4 MV Mean 3.0 MV Area COMMENTS: Nail Machine Operator: Talisha JAMESOE Senior Geotechnical Engineer:1 Dr. Qureshi TAPE# PACS DATE OF SERVICE: 07/16/2016 Echocardiogram FINDINGS: 1. Left ventricular chamber size is dilated. Left ventricular systolic function is normal. Overall ejection fraction estimated at 65%. 2. Left atrium is dilated at 4.5 cm. Right atrium and right ventricular chamber sizes are within normal limits. 3. Valvular structures have normal structure and motion. ECHOCARDIOGRAM REPORT [id number] JORDANA ESPINOZA 4. Doppler interrogation only reveals trace mitral regurgitation. No other valvular insufficiency or stenosis and pulmonary systolic pressure is preserved, estimated at 35 mmHg. 5. No evidence of pericardial effusion or left ventricular thrombus. TRANSINT:[id number] Voice Confirmation ID: [id number] DOCUMENT ID: [id number] 07/25/2016 Edited to correct date of service, DARRICK Galvan MD at 1358 CC: [id number] DICTATION DATE: 07/17/16 1002 HISTOTECHNOLOGIST SUPERVISOR: 07/17/16 1200 DIS IN 07/21/16 [facility] [address] [place] [address]
--- NOTE | 2016-07-28 12:39 | CN ---
PATIENT NAME:JORDANA KIRK MEDICAL RECORD: [id number] : 36 LOCATION:D. D.2130 ADMIT DATE: 07/14/16 ACCOUNT: [id number] CONSULTING PHYSICIAN: MILTON HINSON MD REFERRING PHYSICIAN: ARLENE RIOS MD DATE OF CONSULTATION: 07/14/2016 Pulmonary Consultation CONSULT REQUESTING PHYSICIAN: Arlene Rios MD REASON FOR CONSULTATION: Acute cough, pleurisy and shortness of breath. HISTORY OF PRESENT ILLNESS: Ms. Kirk is a 76-year-old female, according to the patient, for the last 2-3 days, she had a pleuritic type of chest pain on the left side. She has a cough. She has shortness of breath and cough productive with yellow colored sputum production. Initially, it was thought she might have pulled a muscle. She was given some muscle relaxant, which made her worse. She denies any fever or chill. There are no night sweats. REVIEW OF SYSTEMS: CONSTITUTIONAL: No fever or chill, no night sweats. HEENT: There is some sinus congestion. RESPIRATORY: As in history of present illness. CARDIOVASCULAR: No chest pain. No swelling of the lower extremity. GASTROINTESTINAL: No nausea, vomiting or diarrhea. GENITOURINARY: Negative. Other review of the systems is negative. PAST MEDICAL HISTORY: 1. Coronary artery disease. 2. History of congestive heart failure. 3. Possible systolic dysfunction. 4. Hypothyroidism. PAST SURGICAL HISTORY: 1. Status post CABG in 1991. 2. She had bilateral knee surgery. 3. Cholecystectomy. 4. Cataract surgery. 5. Gastric bypass surgery. ALLERGIES: SHE IS ALLERGIC TO PENICILLIN AND POSSIBLY TO IBUPROFEN, WHICH MAKES HER HYPER. PRESENT MEDICATIONS: She is on Levaquin IV, albuterol/ipratropium nebulizer and Plavix. Her other medications are reviewed. PERSONAL AND SOCIAL HISTORY: The patient is an ex-smoker. She smoked for 15 or 16 years. She quit in 1991. She is a nondrinker. FAMILY HISTORY: Significant for heart diseases. PHYSICAL EXAMINATION: CONSULT REPORT [id number] JORDANA KIRK GENERAL: Now, the patient is lying comfortably in bed. She is not in acute distress. VITAL SIGNS: The blood pressure is 116/65, pulse is 91, respiration is 17, temperature 98.1, and SPO2 is 96% on 1 liter nasal cannula. HEENT: Conjunctivae are pink. Sclerae nonicteric. NECK: Supple, no JVD. CHEST: Excursion is minimal on both sides. There is no wheeze, no rales. HEART: Rhythm regular, normal sound, no murmur. ABDOMEN: Soft. Bowel sounds present. No hepatosplenomegaly. RECTAL: Deferred. EXTREMITIES: No cyanosis, no clubbing, no pedal edema. SKIN: Warm, normal turgor. CENTRAL NERVOUS SYSTEM: The patient is awake and alert. There are no obvious cranial nerve abnormalities. The gait was not tested. IMAGING: CTA of the chest: There is no pulmonary embolism. There is minimal patchy infiltrate in the left upper lobe. There is no consolidation. There is no lymphadenopathy. There is no mass seen. OTHER LABORATORY DATA: CBC: WBC 6.7, hemoglobin 12.4, hematocrit 39.8 and platelet count 241. Chemistry: Sodium is 139, potassium 4.5, BUN is 18 and creatinine is 1. IMPRESSION: 1. Pneumonia, left upper lobe consistent with a community-acquired pneumonia. 2. Pleurisy secondary to pneumonia. 3. Dyspnea. 4. History of coronary artery disease status post CABG. 5. Remote history of smoking, possible underlying chronic obstructive pulmonary disease. 6. History of congestive heart failure. RECOMMENDATIONS: 1. Continue albuterol/ipratropium nebulizer. Continue Levaquin. I will add Brovana and budesonide nebulizer. Start her on methylprednisolone IV. 2. Supplemental oxygen as required. Dr. Rios, once again, thanks for involving me in the care of Ms. Kirk. TRANSINT:[id number] Voice Confirmation ID: [id number] DOCUMENT ID: [id number] MILTON HINSON MD at 1239 CC: SERGIO HATHAWAY DO [id number] DICTATION DATE: 07/15/16 1544 DIP DYER: 07/15/162054 DIS IN 07/21/16 [address] [place] [address]
== END 2016-07-21 17:11 | disposition home health service (06) | DRG 166 ==
LOC: D.ER 11:05 → D.M2 15:13
PROVIDERS: Emergency Medicine; Family Medicine; General Practice; Radiology Diagnostic Radiology; ADMIT Family Medicine
PROC: 0PB43ZX Excision of Thoracic Vertebra, Percutaneous Approach, Diagnostic (ICD-10-PCS; 2016-07-20)
PROC: 0PU43JZ Supplement Thoracic Vertebra with Synthetic Substitute, Percutaneous Approach (ICD-10-PCS; 2016-07-20)
PROC: 0PS43ZZ Reposition Thoracic Vertebra, Percutaneous Approach (ICD-10-PCS; principal; 2016-07-20 14:00)
DX: J44.0 Chronic obstructive pulmonary disease with (acute) lower respiratory infection (principal); J18.9 Pneumonia, unspecified organism; I50.32 Chronic diastolic (congestive) heart failure; M48.54XA Collapsed vertebra, not elsewhere classified, thoracic region, initial encounter for fracture; R09.1 Pleurisy; I11.0 Hypertensive heart disease with heart failure; I25.10 Atherosclerotic heart disease of native coronary artery without angina pectoris; I07.1 Rheumatic tricuspid insufficiency; E03.9 Hypothyroidism, unspecified; M19.011 Primary osteoarthritis, right shoulder; Z95.1 Presence of aortocoronary bypass graft; Z87.891 Personal history of nicotine dependence

== ENCOUNTER → 2017-02-28 08:05 | Outpatient (CLI) | payer MEDICARE, OTHER ==
[~2017-02-28] VITALS: Ht 162.6 cm; Wt 100.0 kg
--- NOTE | ~2017-02-28 | HEMODYNAMI ---
PATIENT:JORDANA ESPINOZA MEDICAL RECORD: [id number] : 36 LOCATION:[facility]ia[facility] ADMISSION DATE: 02/28/17 Generatedon:02/28/201710:23 Patient name: JORDANA ESPINOZA Patient #: [id number] SSN: D OB: 1940 Date of study: 02/28/2017 Page: Of Hemodynamic Procedure Report Patient Data Patient Demographics Procedure consent was obtained First Name: JORDANA Gender: Female Last Name: OLGA : 1940 Middle Initial: P Age: 76 year(s) Patient #: [id number] Race: Additional ID: [id number] Contact details Address: [place] [address] State: [place] City: [place] Zip code: [address] Past Medical History Allergies Allergen Reaction Date Comments Reported Penicillins 10/29/2014 Penicillins 07/20/2016 Admission Admission Data Admission Date: 02/28/2017 Admission Time: 8:05 Height (in.): 65 BSA: 0 (m2) Height (cm.): 165.1 BMI: 0 (kg/m2) Procedure Procedure Types Cath Procedure Diagnostic Procedure LHC LHC w/Coronaries w/Grafts FFR/IVUS Intra-Coronary IVUS Initial PCI Procedure Coronary Stent Initial Miscellaneous Procedures Moderate Sedation up to 15 minutes Procedure Description Procedure Date Procedure Date: 02/28/2017 Procedure Start Time: 9:59 Procedure End Time: 10:18 Procedure Staff Name Function Tomás Qureshi MD Performing Physician Conner Magana RT Scrub Stephanie Vega RN Nurse Radha Badillo RT Monitor Procedure Data Cath Procedure Fluoroscopy Diagnostic fluoroscopy Total fluoroscopy Time: 5.5 time: 5.5 min min Diagnostic fluoroscopy Total fluoroscopy dose: 968 dose: 968 mGy mGy Contrast Material Contrast Material Type Amount (ml) Isovue 300 108 Entry Location Entry Primary Successful Side Size Upsize Upsize Entry Closure Succes sful Closure Location (Fr) 1 (Fr) 2 (Fr) Remarks Device Remarks Femoral Right 5 Fr 6 Fr Exoseal artery Short Estimated blood loss: 10 ml Diagnostic catheters Device Type Used For End Catheter Placement Cordis 5Fr Pigtail Ventriculography Catheter (MP) Cordis 5Fr JL 4.0 Procedure Catheter (MP) Cordis 5Fr 3DRC Catheter Procedure (MP) Procedure Complications No complications Procedure Medications Medication Administration Route Dosage Oxygen NC 2 l/min Lidocaine 2% added to field 20 Heparin Flush Bag added to field 2 bags (1000units/500ml NS) 0.9% NaCl I.V. 100 ml/hr Versed I.V. 1 mg Fentanyl I.V. 50 mcg Heparin Bolus I.V. 4000 units Versed I.V. 1 mg Fentanyl I.V. 50 mcg Integrilin (Bolus I.V. 9 ml 2mg/ml) Versed I.V. 1 mg Fentanyl I.V. 50 mcg Plavix P.O. 600 mg Hemodynamics Rest BSA: 0 (m2) Heart Rate: 74 (bpm) Snapshots Pre Cath Intra NCS Post Cath Vital Signs Time Heart Resp SPO2 NIBP (mmHg) Rhythm Pain Sedation Rate (ipm) (%) Status Level (bpm) 9:45:54 71 25 95 Measuring NSR 0 (11) 10(A) , No pain 9:45:58 71 26 95 202/94(156) NSR 0 (11) 10(A) , No pain 9:50:20 72 23 97 182/85(143) NSR 0 (11) 10(A) , No pain 9:54:38 73 14 92 178/87(140) NSR 0 (11) 10(A) , No pain 9:58:58 80 13 96 169/91(123) NSR 0 (11) 10(A) , No pain 10:03:20 72 14 94 164/81(119) NSR 0 (11) 9(A) , No pain 10:07:38 76 18 95 162/85(123) NSR 0 (11) 9(A) , No pain 10:11:58 75 16 95 160/75(121) NSR 0 (11) 9(A) , No pain 10:16:17 74 16 96 165/85(127) NSR 0 (11) 10(A) , No pain Medications Time Medication Route Dose Verified Delivered Reason Notes Effectiveness by by 9:45:46 Oxygen NC 2 Tomás Brown used for l/min Kiera Vega RN procedure 9:45:53 Lidocaine 2% added 20ml Tomás [place] for local to vial Kiera Qureshi MD anesthetic field 9:45:58 Heparin Flush added 2 Tomás [place] used for Bag to bags Kiera Qureshi MD procedure (1000units/500ml field NS) 9:46:07 0.9% NaCl I.V. 100 Tomás Brown Per physician ml/hr Kiera Vega RN 9:58:50 Versed I.V. 1 mg Tomás Brown for sedation Kiera Vega RN 9:58:56 Fentanyl I.V. 50 Tomás Buffie for sedation mcg Kiera Vega RN 10:04:46 Versed I.V. 1 mg Tomás Brown for sedation Kiera Vega RN 10:04:50 Fentanyl I.V. 50 Tomás Brown for sedation mcg Kiera Vega RN 10:07:37 Heparin Bolus I.V. 4000 Tomás Brown for verifi ed units Kiera Vega RN anticoagulation with dr qureshi 10:10:38 Versed I.V. 1 mg Tomás Brown for sedation Kiera Vega RN 10:10:41 Fentanyl I.V. 50 Tomás Yanezie for sedation mcg Kiera Vega RN 10:12:49 Integrilin I.V. 9 ml Tomás Brown for wasted 1 (Bolus 2mg/ml) Kiera Vega RN antiplatelet ml of therapy vial 10:17:37 Plavix P.O. 600 Tomás Brown for mg Kiera Vega RN antiplatelet therapy Procedure Log Time Note 9:43:13 Patient Height : 165.1 inches 9:43:17 Patient Weight : 0 lbs 9:43:44 Diagnostic Cath status Elective 9:43:46 Stpehanie Vega RN sent for patient. Start room use. 9:44:04 Time tracking: Regular hours 9:44:05 Vital chart was started 9:44:10 Plan of Care:Hemodynamics will remain stable., Cardiac rhythm will remain stable., Comfort level will be maintained., Respiratory function will remain adequate., Patient/ family verbilizes understanding of procedure., Procedure tolerated without complication., Recovers from procedure without complications.. 9:44:16 Patient received from Pre/Post Procedure Room to CCL 2 Alert and oriented. Tansferred to table in Supine position. 9:44:18 Warm blankets applied, and aaliyah hugger turned on for patient comfort. 9:44:19 Correct patient and procedure confirmed by team. 9:44:21 Signed procedure consent form obtained from patient. 9:44:22 ECG and BP/O2 sat monitors applied to patient. 9:44:23 Baseline sample Acquired. 9:44:28 Full Disclosure recording started 9:44:35 H&P Date Dictated: 02/27/2017 Within 30 days and on chart., H&P Addendum completed by physician on day of procedure. (MUST COMPLETE FOR ALL OUTPATIENTS). 9:44:36 Pre-procedure instructions explained to patient. 9:44:38 Family in waiting room. 9:44:39 Patient NPO since Midnight. 9:44:53 Is the patient allergic to Iodine/contrast media? No. 9:44:55 Is patient on blood thinner?No 9:44:59 Patient diabetic? No. 9:45:02 Snore? Yes 9:45:03 Sleep apnea? No 9:45:10 Airway obstruction? Yes Asthma 9:45:17 Patient pain scale 0/10 ?. 9:45:23 IV patent on arrival in left hand with 0.9% NaCl at KVO. 9:45:29 Lab results completed and on chart. 9:45:33 Right groin area was prepped with chlora-prep and draped in sterile fashion 9:45:34 Alarms reviewed by R. N. 9:45:35 Sharps counted by scrub and verified by R.N. 9:45:36 Physician paged 9:45:46 Oxygen 2 l/min NC was administered by Stephanie Vega RN; used for procedure; 9:45:53 Lidocaine 2% 20ml vial added to field was administered by Tomás Qureshi MD; for local anesthetic; 9:45:58 Heparin Flush Bag (1000units/500ml NS) 2 bags added to field was administered by Tomás Qureshi MD; used for procedure; 9:46:07 0.9% NaCl 100 ml/hr I.V. was administered by Stepahnie Vega RN; Per physician; 9:46:15 Procedure type changed to Cath procedure, Diagnostic procedure, LHC, LHC w/Coronaries w/Grafts, FFR/IVUS, Intra-Coronary IVUS Initial, PCI procedure, Coronary Stent Initial, Miscellaneous Procedures, Moderate Sedation up to 15 minutes 9:48:15 Physician arrived 9:52:46 Zero performed for pressure channel P1 9:55:51 Use device set Femoral Dx 9:56:19 Acist Syringe opened to sterile field. 9:56:20 Bag Decanter opened to sterile field. 9:56:20 Medline Cath Pack opened to sterile field. 9:56:23 Terumo 5Fr [place] Sheath opened to sterile field. 9:56:24 St Burak 260cm J .035 wire opened to sterile field. 9:56:25 Acist Hand Control opened to sterile field. 9:56:26 Acist Manifold opened to sterile field. 9:56:26 Diagnostic Infinity 5Fr Multipack catheter opened to sterile field. 9:56:27 Tegaderm 4 x 4 opened to sterile field. 9:58:23 --------ALL STOP TIME OUT------ 9:58:23 Final Timeout: patient, procedure, and site verified with staff and physician. All members of the team are in agreement. 9:58:25 Right groin site verified by team. 9:58:31 Physical assessment completed. ASA score P 2 - A patient with mild systemic disease as per Tomás Qureshi MD. 9:58:34 Sedation plan: IV Moderate Sedation Versed, Fentanyl 9:58:39 Procedure started. 9:58:50 Versed 1 mg I.V. was administered by Stephanie Vega RN; for sedation; 9:58:56 Fentanyl 50 mcg I.V. was administered by Stephanie Vega RN; for sedation; 9:59:03 Local anesthetic to right femoral artery with Lidocaine 2% by Tomás Qureshi MD.INITIAL ACCESS ONLY 9:59:57 A 5 Fr sheath was inserted into the Right Femoral artery 10:00:16 A Cordis 5Fr Pigtail Catheter (MP) was advanced over the wire and used for Ventriculography. 10:00:50 EF : 60 % 10:00:53 Catheter removed. 10:01:02 A Cordis 5Fr JL 4.0 Catheter (MP) was advanced over the wire and used for Procedure. 10:01:47 LCA angiography performed. 10:03:09 Catheter removed. 10:03:24 A Cordis 5Fr 3DRC Catheter (MP) was advanced over the wire and used for Procedure. 10:03:28 RCA angiography performed. 10:04:05 JACKSON to LAD angiography performed. 10:04:46 Versed 1 mg I.V. was administered by Stephanie Vega RN; for sedation; 10:04:50 Fentanyl 50 mcg I.V. was administered by Stephanie Vega RN; for sedation; 10:05:18 Catheter removed. 10:05:47 Medtronic Launcher 5Fr AR 2.0 guide catheter opened to sterile field. 10:07:27 SVG to Circ angiography performed. 10:07:37 Heparin Bolus 4000 units I.V. was administered by Stephanie Vega RN; for anticoagulation; verified with dr qureshi 10:07:37 Sheath upsized to a 6 Fr Short. 10:08:12 Cordis 6FR XBLAD 4.0 guide catheter opened to sterile field. 10:08:14 Terumo 6Fr [place] Sheath opened to sterile field. 10:08:16 broadbandchoices BasixCompak Inflation Kit opened to sterile field. 10:08:18 Barnard Whisper J 300cm 0.014 guide wire opened to sterile field. 10:08:19 [place] IVUS Catheter opened to sterile field. 10:08:53 6 Fr XBLAD guide catheter was inserted over the wire 10:08:58 whisp wire advanced. 10:09:31 Wire advanced across lesion. 10:10:38 Versed 1 mg I.V. was administered by Stephanie Vega RN; for sedation; 10:10:41 Fentanyl 50 mcg I.V. was administered by Stephanie Vega RN; for sedation; 10:12:49 Integrilin (Bolus 2mg/ml) 9 ml I.V. was administered by Stephanie Vega RN; for antiplatelet therapy; wasted 1 ml of vial 10:14:45 Inflation Number: 1 A Medtronic Integrity 4.0 X 12 stent was prepped and advanced across the Mid CX. The stent was deployed at 13 JENNA for 0:10 (min:sec). 10:14:55 Cordis 6Fr Exoseal opened to sterile field. 10:15:02 Balloon removed over the wire. 10:15:02 Wire removed. 10:15:03 Guide catheter removed. 10:15:12 Sheath removed intact; hemostasis achieved with Exoseal to the Right Femoral artery. 10:15:15 Procedure ended.(Physican Out) 10:16:08 Fluoroscopy time 05.50 minutes. 10:16:14 Flurop Dose total: 968 10:16:14 Fluoroscopy dose: 968 mGy 10:16:19 Contrast amount:Isovue 300 108ml. 10:16:21 Sharps counted by scrub and verified by R.N. 10:16:22 Insertion/operative site no bleeding no hematoma. 10:16:26 Post right femoral artery:stable 10:16:28 Post Procedure Pulses reassessed and unchanged 10:16:32 Post procedure rhythm: unchanged. 10:17:09 Estimated blood loss: 10 ml 10:17:14 Post procedure instruction explained to patient.Patient verbalizes understanding. 10:17:16 Procedure and supply charges have been captured, reviewed, submitted and are correct. 10:17:37 Plavix 600 mg P.O. was administered by Stephanie Vega RN; for antiplatelet therapy; 10:17:53 Procedure Complication : No complications 10:17:56 Vital chart was stopped 10:17:56 See physician's report for complete and final results. 10:17:59 Report given to Pre/Post Procedure Room. 10:18:03 Patient transfered to Pre/Post Procedure Room with Stretcher. 10:18:05 Procedure ended. 10:18:05 Full Disclosure recording stopped 10:18:08 End room use (Document Last) 10:18:20 ACC-PCI Only Patient was given prescriptions, or instructed by Tomás Qureshi MD to start/continue the following medications upon discharge: Plavix Intervention Summary Intervention Notes Time ActionType Lesion and Equipment Action# Pressure Duration Attributes Used 10:14:45 Place stent Mid CX Medtronic 1 13 00:10 Integrity 4.0 X 12 stent Device Usage Item Name Manufacture Quantity Catalog Hospital Part Current Minimal L ot# / Number Charge Number Stock Stock Serial# Code Acist Acist 1 23234 [id number] [id number] [id number] 20 Syringe Medical Systems Inc Bag Microtek 1 2002S 688867 16557 582001 5 Gotuit Inc. Medline Cardinal 1 [id number] 811513 84670 588068 5 Cath Primus Power Terumo 5Fr Terumo 1 [id number] 304798 149045 467063 [address] St Burak 1 905044 886549 090157 502585 30 260cm J .035 wire Acist Hand Acist 1 14737 079173 503370 972884 5 Control Medical Systems Inc Acist Acist 1 53528 110200 052232 810816 5 Manifold Medical Systems Inc Diagnostic Cardinal 1 [id number] 991885 66274 277842 30 Infinity Health 5Fr Multipack catheter Tegaderm 4 3M 1 1626W 689150 781871 780396 5 x 4 Cordis 5Fr Cardinal 1 498346 5 Pigtail Health Catheter (MP) Cordis 5Fr Cardinal 1 249104 5 JL 4.0 Health Catheter (MP) Cordis 5Fr Cardinal 1 927883 5 3DRC Health Catheter (MP) Medtronic Medtronic 1 [id number] 569037 728238 106130 1 Launcher 5Fr [place] 2.0 guide catheter Cordis 6FR Cardinal 1 [id number] 059803 136601 836294 3 XBLAD 4.0 Health guide catheter Terumo 6Fr Terumo 1 [id number] 312071 139226 757810 40 [place] Sheath Merit Merit 1 [id number] 423484 662132 523165 15 [facility] Medical Inflation Kit Barnard Barnard 1 [id number] 108088 285414 372594 5 Whisper J Vascular 300cm 0.014 guide wire [place]avelock 1 [id number] 331282 021792 679053 8 [place] IVUS Catheter Medtronic Medtronic 1 [id number] 072650 671297 1 0 [id number] Integrity 4.0 X 12 stent Cordis 6Fr Cardinal 1 EX600 559440 132534 618319 10 [facility] Signature Audit [place] Stage Time Signature Unsigned Intra-Procedure 02/28/2017 Radha Badillo 10:22:57 AM RT(R) Signatures Monitor : Radha Badillo Signature : RT Date : Time : [facility] [address] [place] [address]
[~2017-02-28 08:05] MED LIST changes: +BACLOFEN10 MG PO; +BAYER CHEWABLE81 MG PO; +BENZONATATE200 MG PO; +BETAPACE 80 MG80 MG PO; +FUROSEMIDE40 MG PO; +IPRAT-ALBUT 0.5-3 ML INH; +ISOSORBIDE DINI20 MG PO; +LEVAQUIN750 MG PO; +MUCINEX DM ER1 EAC1 PO; +NITROSTAT0.4 MG SL; +OMEPRAZOLE20 M1 PO; +PREDNISONE10 MG PO; +PROAIR HFA8.5 GM INH; +SYNTHROID112 MCG PO
[2017-02-28 08:39] VITALS: BP 161/99; Ht 162.6 cm; Wt 100.0 kg
[2017-02-28 08:52] LABS: BASOPHILS 0.7 % (0-2); EOSINOPHILS 17.4 % (0-7); HEMATOCRIT 43.6 % (36.0-48.0); HEMOGLOBIN 14.6 g/dL (12-16); IMMATURE GRANULOCYTES 0.3 % (0-5); LYMPHOCYTES 29.8 % (15-50); MCH 35.8 pg (26.0-34.0); MCHC 33.5 g/dL (31.0-37.0); MCV 106.9 fL (80.0-100.0); MEAN PLATELET VOLUME 9.6 fL (7.4-10.4); MONOCYTES 6.9 % (2-11); NEUTROPHILS 44.9 % (40-80); RBC 4.08 10x6/uL (4.00-5.40); RDW 13.4 % (11.5-14.5); WBC 6.1 10x3/uL (4.8-10.8)
[2017-02-28 09:01] LABS: PLATELET COUNT 196 10x3/uL (130-400)
[2017-02-28 09:10] LABS: ANION GAP 13.1 mmol/L (8-16); CARBON DIOXIDE 28.5 mmol/L (21.0-32.0); CREATININE - SERUM 1.1 mg/dL (0.6-1.3); POTASSIUM - SERUM 3.6 mmol/L (3.5-5.1)
--- NOTE | 2017-02-28 10:40 | NUR ---
1040 RECIEVED TO ROOM VIA STRETCHER FROM FILLER MACHINE OPERATOR WITH 6 FR EXOSEAL R/GROIN CDI. NO BLEEDING NO HEMATOMA NOTED. REPORTS OF ONE STENT TO THE CIRCUMFLEX. VSS WITH CHEST PAIN DENIED INSTRUCTED PATIENT TO KEEP HEAD FLAT ON PILLOW WITH RLE STRAIGHT
--- NOTE | 2017-02-28 11:00 | NUR ---
1100 6 FR EXOSEAL R/GROIN CDI NO BLEEDING NO HEMATOMA NOTED. PULSES PRESENT AND MARKED. FAMILY AT SIDE
--- NOTE | 2017-02-28 11:18 | NUR ---
SANDWICH AND SODA TO BEDSIDE HR 68 BP 170/76. CHEST PAIN DENIED WITH 6 FR EXOSEAL R/GROIN CDI NO BLEEDING NO HEMATOMA NOTED FAMILY AT BEDSIDE
--- NOTE | 2017-02-28 11:44 | NUR ---
VISITING WITH FAMILY AT SIDE CHEST PAIN IS DENIED WITH 6 FR EXOSEAL R GROIN CDI
--- NOTE | 2017-02-28 12:10 | NUR ---
NO CHANGE IN ASSESSMENT PATIENT DENIED NEEDS R/GROIN CDI
--- NOTE | 2017-02-28 12:45 | NUR ---
8494 PATIENT VOIDS TO COLLECTION WITH RISHI CARE PROVIDED. R/GROIN REMAINS CDI NO BLEEDING NO HEMATOMA NOTED
--- NOTE | 2017-02-28 13:31 | NUR ---
RESTING QUIETLY WITH FAMILY AT SIDE NO COMPLAINTS
--- NOTE | 2017-02-28 13:53 | NUR ---
REPOSITIONED TO SITTING WITH HOB UP 45 DEGREES CHEST PAIN DENIED WITH R/GROIN CDI
--- NOTE | 2017-02-28 14:10 | NUR ---
PIV REMOVED WITH DRESSING APPLIED. PATIENT UP TO GET DRESSED FOR DISCHARGE HOME WITH CHEST PAIN DENIED. R/GROIN CDI
--- NOTE | 2017-02-28 14:34 | NUR ---
LEFT VIA WC TO PARKING WITH FAMILY R/GROIN CDI AND CHEST PAIN DENIED
--- NOTE | 2017-03-01 12:22 | HP ---
PATIENT: JORDANA KIRK MEDICAL RECORD: [id number] ACCOUNT: [id number] LOCATION:[facility] : 36 ADMISSION DATE: 02/28/17 HISTORY AND PHYSICAL EXAMINATION ADMITTING DIAGNOSES: 1. Angina. 2. Coronary artery disease. 3. Previous percutaneous transluminal coronary angioplasty stent. 4. Abnormal nuclear stress test. 5. Hypertension. 6. Paroxysmal atrial fibrillation. HISTORY OF PRESENT ILLNESS: Mrs. Kirk presents with increasing anginal symptomatology, underwent nuclear stress testing revealing significant perfusion defect, now brought for cardiac catheterization. PHYSICAL EXAMINATION: GENERAL APPEARANCE: Well-nourished, well-developed, appears stated age. Level of distress, comfortable. PSYCHIATRIC: Mental status, alert, normal affect. Orientation, oriented to time, place and person. EYES: Lids and conjunctiva, noninjected. No discharge, no pallor. ENT: Lips, teeth, gums, normal dentition. Oropharynx, no cyanosis, no pallor. NECK: Carotid arteries, bilateral normal upstroke, no bruits, no thrills. JUGULAR VEINS: No jugular venous pressure or distention. CERVICAL LYMPH NODES: Nontender, nonenlarged. THYROID: Not enlarged. Nontender. No nodules. LUNGS: Respiratory effort, unlabored. CHEST: Normal curvature. No thoracic deformity. No chest wall tenderness. Percussion, resonant. Auscultation, clear. No wheezes, no rales, no rhonchi. CARDIOVASCULAR: Precordial exam, nondisplaced. No heaves or pericardial thrills. Rate and rhythm, regular. Heart sounds, normal S1, normal S2. No S3, no gallop, no rub. Systolic murmur, not heard. Diastolic murmur, not heard. EXTREMITIES: No cyanosis, no edema. Peripheral pulses, full and equal in all extremities, except as noted. No bruits appreciated. ABDOMEN: Soft, nondistended. Normal aorta. No bruit. Nontender. No masses. Liver, nontender, no hepatomegaly. Spleen, nontender, no splenomegaly. MUSCULOSKELETAL: No joint tenderness. No joint swelling. No erythema. NEUROLOGICAL: Normal gait, normal strength, normal tone. SKIN: Warm and dry. REVIEW OF SYSTEMS: The patient reports easy bruising but reports no swollen glands. The patient reports no fever, no night sweats, no significant weight gain, no significant weight loss. No significant exercise tolerance. The patient reports no dry eyes, no irritation, no vision change. Patient reports no difficulty hearing and no ear pain. Patient reports no frequent nose bleeds or nose and sinus problems. Patient reports on arm pain on exertion. No shortness of breath while lying down. No history of heart murmur. Patient reports no cough, no wheezing or coughing up blood. Patient reports no abdominal pain, no vomiting. Normal appetite. No diarrhea and not vomiting blood. No nausea and no constipation. Patient reports no incontinence. No difficulty urinating. No hematuria. No increased frequency. Patient reports no muscle aches. No weakness, no arthralgias, no back pain. No swelling of the extremities. Patient reports no abnormal mole, no jaundice, no rashes. Reports HISTORY AND PHYSICAL [id number] COGBURN,JORDANA P no loss of consciousness. No weakness and no numbness. No seizures, dizziness, or headaches. The patient reports no depression, no sleep disturbance, feeling safe in a relationship and no alcohol abuse. Patient reports on fatigue. Reports no runny nose or sinus pressure. No itching, no hives, and no frequent sneezing. OVERALL IMPRESSION: Anginal symptomatology with abnormal nuclear stress test, most likely she has recurrent hemodynamically significant coronary artery disease. We will proceed with coronary angiography. Further care depends upon the findings of the angiography. TRANSINT:[id number] Voice Confirmation ID: [id number] DOCUMENT ID: [id number] DARRICK WHITE MD at 1222 CC: [id number] DICTATION DATE: 02/28/17901 SLATE HANDLER: 02/28/17911 DEP CLI 02/28/17 [place] [id number] [place] [id number]
--- NOTE | 2017-03-01 12:22 | OP ---
PATIENT NAME: JORDANA ESPINOZA MEDICAL RECORD: [id number] :36 LOCATION:[facility] ADMISSION DATE: SURGEON: DARRICK WHITE MD DATE OF OPERATION: 02/28/2017 PROCEDURES: 1. PTCA stent left circumflex. 2. Intravascular ultrasound. 3. Left heart catheterization. 4. Selective coronary angiography. 5. Left ventriculogram. 6. Vein graft angiography. 7. JACKSON angiography. INDICATION: Unstable angina. PROCEDURE IN DETAIL: After informed consent was obtained and after detailed explanation of risks, benefits as well as alternative therapies, the patient elected to proceed with angiogram and angioplasty. The right femoral area was prepped and draped in normal sterile fashion. The right femoral artery was cannulated via modified Seldinger technique with placement of 6-Iranian sheath. All catheters exchanged through this sheath. FINDINGS: Left ventriculogram was performed in standard 30-degree HAMMOND view, reveals good cardiac wall motion throughout all segments. Overall ejection fraction 50%. SELECTIVE CORONARY ANGIOGRAPHY: 1. Left main showed no significant angiographic disease. 2. Left anterior descending is totally occluded. 3. Vein graft to the LAD diagonal is widely patent. The previously placed stents are widely patent. No disease elsewise. 4. JACKSON to the LAD is widely patent. Distal LAD is widely patent. 5. The left circumflex is a large, dominant, feeds the inferior wall which was the site of the defect on nuclear stress testing. This has a hazy 70% stenosis in the mid vessel confirmed by intravascular ultrasound. 6. The right coronary is small, nondominant with no significant disease. PTCA STENT OF THE LEFT CIRCUMFLEX: The stent used is 4.0 x 12 mm Integrity. Result was 0% residual stenosis. OVERALL IMPRESSION: Successful percutaneous transluminal coronary angioplasty stent of the left circumflex going from 70% initial stenosis to 0% residual stenosis. TRANSINT:[id number] Voice Confirmation ID: [id number] DOCUMENT ID: [id number] OPERATIVE REPORT [id number] JORDANA ESPINOZA JEFFREY MD at 1222 CC: [id number] DICTATION DATE: 02/28/17 1020 VISION TEACHER: 02/28/17 1114 DEP CLI 02/28/[address] [facility] [address] [place] [address]
== END | disposition home or self-care (01) ==
LOC: D.CATH 08:05
PROVIDERS: Internal Medicine Interventional Cardiology
DX: I25.119 Atherosclerotic heart disease of native coronary artery with unspecified angina pectoris (principal); Z95.5 Presence of coronary angioplasty implant and graft; R94.30 Abnormal result of cardiovascular function study, unspecified; R06.02 Shortness of breath; I10 Essential (primary) hypertension; I48.0 Paroxysmal atrial fibrillation; Z01.812 Encounter for preprocedural laboratory examination

== ENCOUNTER → 2017-04-09 10:55 | Outpatient (CLI) | payer MEDICARE, OTHER ==
[2017-02-28 08:39] VITALS: BMI 37.8
[2017-04-10 09:15] LABS: IMMUNOGLOBULIN E 9 IU/mL (0-100)
== END | disposition home or self-care (01) ==
LOC: D.RT 10:55
PROVIDERS: Internal Medicine Pulmonary Disease
DX: J45.991 Cough variant asthma (principal)

== ENCOUNTER 2018-03-25 14:38 | Emergency (ER) | payer MEDICARE, OTHER ==
[~2018-03-25] VITALS: Ht 162.6 cm; Wt 99.1 kg
[2018-03-25 14:50] VITALS: Ht 162.6 cm; Wt 99.1 kg
[2018-03-25 17:07] LABS: BASOPHILS 0.2 % (0-2); EOSINOPHILS 2.8 % (0-7); HEMATOCRIT 39.9 % (36.0-48.0); HEMOGLOBIN 13.1 g/dL (12-16); IMMATURE GRANULOCYTES 0.3 % (0-5); LYMPHOCYTES 13.9 % (15-50); MCH 35.1 pg (26.0-34.0); MCHC 32.8 g/dL (31.0-37.0); MEAN PLATELET VOLUME 9.4 fL (7.4-10.4); MONOCYTES 5.4 % (2-11); NEUTROPHILS 77.4 % (40-80); PLATELET COUNT 212 10x3/uL (130-400); RBC 3.73 10x6/uL (4.00-5.40); RDW 13.7 % (11.5-14.5)
[2018-03-25 17:47] LABS: ALBUMIN 3.4 g/dL (3.4-5.0); ANION GAP 11.1 mmol/L (8-16); BILIRUBIN - TOTAL 0.56 mg/dL (0.2-1.3); CALCIUM 9.9 mg/dL (8.5-10.1); CARBON DIOXIDE 30.9 mmol/L (21.0-32.0); CREATININE - SERUM 1.1 mg/dL (0.6-1.3); PROTEIN - SERUM 7.6 g/dL (6.4-8.2)
[2018-03-25 19:35] VITALS: BP 142/64
== END 2018-03-25 19:35 | disposition home or self-care (01) ==
LOC: D.ER 14:38
PROVIDERS: Family Medicine
DX: S20.212A Contusion of left front wall of thorax, initial encounter (principal); S20.211A Contusion of right front wall of thorax, initial encounter; W19.XXXA Unspecified fall, initial encounter; Y93.89 Activity, other specified; Y92.019 Unspecified place in single-family (private) house as the place of occurrence of the external cause; I10 Essential (primary) hypertension; R42 Dizziness and giddiness; R11.0 Nausea; E07.9 Disorder of thyroid, unspecified; Z95.1 Presence of aortocoronary bypass graft; K21.9 Gastro-esophageal reflux disease without esophagitis